=== PATIENT | female | born 1970 | race African-American/Black ===

== ENCOUNTER 2022-01-06 19:59 | Emergency (ER) | payer MEDICAID ==
[~2022-01-06] VITALS: Ht 167.6 cm; Wt 100.0 kg
[2022-01-06] MEDS ORDERED: HYDROCODONE/ACETAMINOPHEN 5/325MG TABLET PO STA (20:44)
[2022-01-06 20:52] VITALS: BP 148/66
[2022-01-06] MEDS ORDERED: IBUP-2028 MT (22:47)
[2022-01-06] MEDS ORDERED: CYCL10TA21 MT (22:51)
== END 2022-01-06 23:03 | disposition home or self-care (01) ==
LOC: ER 19:59
DX: S09.8XXA Other specified injuries of head, initial encounter (principal); V49.59XA Passenger injured in collision with other motor vehicles in traffic accident, initial encounter; Y93.89 Activity, other specified; Y92.89 Other specified places as the place of occurrence of the external cause; Y99.8 Other external cause status
CPT/HCPCS: 73030; 73130; 81025; 99284; A4565